=== PATIENT | female | born 1990 | race Caucasian/White ===

== ENCOUNTER 2019-10-30 18:11 | Emergency (ER) | payer OTHER ==
[~2019-10-30] VITALS: Ht 162.6 cm; Wt 55.8 kg
[2019-10-30 19:15] LABS: CLARITY,URINE HAZY; COLOR,URINE ORANGE
[2019-10-30 19:16] LABS: BACTERIA,URINE FEW /HPF (0-FEW); SQUAMOUS EPITHELIAL CELL,UR OCC /LPF
[2019-10-30 19:18] LABS: U PREG PATIENT NEGATIVE (NEG)
--- NOTE | 2019-10-30 19:27 | PHYS DOC ---
Past History Past Medical History: No Pertinent History Past Surgical History: Cholecystectomy Smoking: Less than 1pk/day Alcohol Use: Rarely Drug Use: None Adult General Chief Complaint Chief Complaint: PELVIC PAIN HPI HPI Patient is a 21-year-old female who is presenting with 3 days now of dysuria symptoms onset was that time. Ago he was burning when she urinated then she woke up the next morning she was having lower abdominal discomfort described as cramping and spasm and then now over the last 24 hours is having right flank pain no fever no vomiting occasional nausea went to urgent care diagnosed with UTI but they only did a dipstick and they said if the pain were to get worse she should come to the emergency room for evaluation. She was having persistent flank pain so she came here to be checked out again. No vaginal bleeding or discharge she is on control Review of Systems Review of Systems Constitutional: : Integument: Denies rash or skin lesions [] Neurologic: Denies headache, focal weakness or sensory changes [] Endocrine: Denies polyuria or polydipsia [] All other systems were reviewed and found to be within normal limits, except as documented in this note. Allergies Allergies Allergies Coded Allergies Type Severity Reaction Last Updated Verified No Known Drug Allergies 10/31/13 No Physical Exam Physical Exam Constitutional: Well developed, well nourished, no acute distress, non-toxic appearance. [] HENT: Normocephalic, atraumatic, bilateral external ears normal, oropharynx moist, no oral exudates, nose normal. [] Eyes: PERRLA, EOMI, conjunctiva normal, no discharge. [] Neck: Normal range of motion, no tenderness, supple, no stridor. [] Pulmonary: Normal respiratory effort no increased work of breathing no obvious chest wall trauma Abdomen: Bowel sounds normal, soft, mild suprapubic tenderness, no masses, no pulsatile masses. [] Skin: Warm, dry, no erythema, no rash. [] Back: Right CVA tenderness noted Extremities: No tenderness, no cyanosis, no clubbing, ROM intact, no edema. [] Neurologic: Alert and oriented X 3, normal motor function, normal sensory function, no focal deficits noted. [] Psychologic: Affect normal, judgement normal, mood normal. [] Current Patient Data Vital Signs Vital Signs Date Time Temp Pulse Resp B/P (MAP) Pulse Ox O2 Delivery O2 Flow Rate FiO2 1/6/20 18:30 98.2 77 16 97 Room Air Lab Results Laboratory Tests Test 10/30/19 18:31 10/30/19 18:35 Urine Test Negative (NEG) Urine Collection Type Unknown Urine Color [place] Urine Clarity Hazy Urine pH Urine Specific [place] Urine Protein (NEG-TRACE) Urine Glucose (UA) mg/dL (NEG) Urine Ketones (Stick) mg/dL (NEG) Urine Blood (NEG) Urine Nitrite (NEG) Urine Bilirubin (NEG) Urine Urobilinogen Dipstick mg/dL (0.2 mg/dL) Urine Leukocyte Esterase (NEG) Urine RBC 3-5 /HPF (0-2) Urine WBC 5-10 /HPF (0-4) Urine Squamous Epithelial Cells Occ /LPF Urine Bacteria Few /HPF (0-FEW) EKG EKG [] Radiology/Procedures Radiology/Procedures []98.2 degrees F (97.6-99.5) Patient Temperature * 98.2 degrees F (97.5-99.5) Temperature Source * Oral Blood Pressure Systolic * 129 mm Hg (100-140) Blood Pressure Diastolic * 70 mm Hg (60-100) Blood Pressure Mean * 89 mm Hg Blood Pressure Location * Right Arm Blood Pressure Source * Automatic Cuff Pulse Rate Course & Med Decision Making Course & Med Decision Making Pertinent Labs and Imaging studies reviewed. (See chart for details) []This is a well-appearing female presenting with 3 days of symptoms that sound very much like a UTI. There are no vaginal symptoms abdomen is fairly benign overall urinalysis I think is consistent with a mild urinary tract infection patient has Macrobid and a Zofran outside facility I think is reasonable to continue this for now return precautions discussed in detail for migraine pain worsening pain pain not as positive [id number] agents high fever or any other symptoms or concerns. Dragon Disclaimer Dragon Disclaimer This electronic medical record was generated, in whole or in part, using a voice recognition dictation system. Departure Departure: Impression: Primary Impression: Cystitis Disposition: 01 HOME, SELF-CARE Condition: STABLE Patient Instructions: Urinary Tract Infection, [id number] CORTEZ GÓMEZ MD Oct 30, 2019 19:27
[2019-10-30 19:39] VITALS: BP 108/59
== END 2019-10-30 19:39 | disposition home or self-care (01) ==
LOC: ER 18:11
DX: N30.90 Cystitis, unspecified without hematuria (principal); F17.200 Nicotine dependence, unspecified, uncomplicated; Z90.49 Acquired absence of other specified parts of digestive tract
CPT/HCPCS: 81001; 81025; 87086; 99284

== ENCOUNTER → 2021-09-29 | Outpatient (CLI) | payer OTHER ==
--- NOTE | 2021-09-29 14:53 | RAD ---
EXAM: ULTRASOUND ABDOMEN COMPLETE CLINICAL HISTORY: Reason: ABNORMAL LFTS; CHRONIC HEPATITIS C WITHOUT HEPATIC COMA / Spl. Instructions : / History: COMPARISON: None available. TECHNIQUE: Ultrasound of the upper abdomen was performed. FINDINGS: The aorta is nonaneurysmal. Visualized portions the pancreas are normal. The distal tail was not well seen. The IVC is patent. The liver measures 14.3 cm, and is normal in size, contour, and echogenicit y. No intra or extrahepatic biliary ductal dilatation. The bladder is surgically absent. Common bile duct measures 7 mm in thickness. Portal vein is patent and hepatopedal. The right kidney measures 9.8 x 5.6 cm and the left measures 9.2 x 4.0 cm. Spleen measures 11.6 cm is normal. No gross color flow abnormalities to either kidney. No hydronephrosis. IMPRESSION: 1.Cholecystectomy. No acute sonographic abdominal abnormality. Electronically signed by: Ishaan Nguyen MD (09/29/2021 2:51 PM) [id number]
== END ==
LOC: US 07:43
PROVIDERS: ATTEND Nurse Practitioner Adult Health
DX: R94.5 Abnormal results of liver function studies (principal); B18.2 Chronic viral hepatitis C
CPT/HCPCS: 76700